=== PATIENT | male | born 1980 | race Hispanic/Latino ===

== ENCOUNTER 2020-12-13 10:22 | Outpatient (CLI) | payer OTHER ==
--- NOTE | 2020-12-13 13:43 | Magnetic Resonance Report ---
MRI RIGHT SHOULDER WITHOUT CONTRAST INDICATION / CLINICAL INFORMATION: Limited range of motion. TECHNIQUE: Multiplanar, multisequence MR images were obtained. No contrast used. COMPARISON: None available. FINDINGS: SUPRASPINATUS: Tendinosis. INFRASPINATUS: Tendinosis. SUBSCAPULARIS: No significant abnormality. BICEPS TENDON, LONG HEAD: Mild tenosynovitis. GLENOID LABRUM: No significant abnormality. ARTICULAR CARTILAGE: Moderate glenohumeral joint chondrosis. JOINT SPACE AND CAPSULE: There is mild thickening of the inferior joint capsule with adjacent soft ti ssue edema. ACROMION and A.C. JOINT: No significant abnormality. SUBACROMIAL/SUBDELTOID SPACE: Mild subacromial/subdeltoid bursitis. BONES: No significant bone marrow edema. No fracture. No osseous lesion. SOFT TISSUES: No significant abnormality. ADDITIONAL FINDINGS: None. IMPRESSION: 1. Mild thickening of the inferior joint capsule with adjacent soft tissue edema can be seen in the c linical setting of adhesive capsulitis. Please correlate clinically. 2. Supraspinatus and infraspinatus tendinosis without rotator cuff tear. 3. Mild biceps tenosynovitis. 4. Mild subacromial/subdeltoid bursitis. Report dictated by: Fran Quijano MD Report dictated on: 12/13/2020 12:04 PM I have reviewed the images, agree with this report, and edited this report as needed. Signer Name: Deejay Waters MD Signed: 12/13/2020 1:38 PM Workstation Name: [id number]
== END 2020-12-13 10:23 | disposition home or self-care (01) ==
LOC: MRI 10:22
PROVIDERS: ATTEND Specialist
DX: M75.51 Bursitis of right shoulder (principal); M77.8 Other enthesopathies, not elsewhere classified; M65.811 Other synovitis and tenosynovitis, right shoulder; M79.89 Other specified soft tissue disorders